=== PATIENT | male | born 1945 | race Caucasian/White ===

== ENCOUNTER → 2017-09-09 | Outpatient (CLI) | payer MEDICARE, OTHER, BC | END | disposition home or self-care (01) | LOC: HKI 11:03 | DX: M79.651 Pain in right thigh (principal); E78.00 Pure hypercholesterolemia, unspecified; K50.90 Crohn's disease, unspecified, without complications; Z96.643 Presence of artificial hip joint, bilateral | CPT/HCPCS: 73502; 73562-RT ==